=== PATIENT | female | born 1970 | race Two or more races ===

== ENCOUNTER 2018-09-27 15:02 | Day surgery (SDC) | payer OTHER ==
[2018-09-27] VITALS (12 sets, daily range): BP systolic 108–157; BP diastolic 60–73; PULSE 66–87; RESP 8–20; Ht 160 cm; Wt 143.6 kg
[~2018-09-27] VITALS: Ht 160 cm; Wt 143.6 kg
[~2018-09-27 15:02] MED LIST: CEFAZOLIN 2 GM/50 ML (PMX) 50 ML IVPB SCH
--- NOTE | 2018-09-27 16:14 | HPN ---
Date/Time of Note Date/Time of Note DATE: 09/27/18 TIME: 16:14 Interval H&P Admission Note Pt. seen H&P reviewed: No system changes BRISSA MOORE MD Sep 27, 2018 16:14
[2018-09-27] MEDS ORDERED: LACTATED RINGER'S 1,000 ML IV SCH (16:30)
[2018-09-27] MEDS ORDERED: LIDOCAINE 1% (MPF) 30 ML INJ ONE (17:18)
[2018-09-27] MEDS ORDERED: POLYMYXIN/BACITRACIN 1L IRRIG ONE (17:18)
--- NOTE | 2018-09-27 18:14 | PREAC ---
Date/Time of Note Date/Time of Note DATE: 09/27/18 TIME: 18:13 Anesthesia Eval and Record Evaluation Time Pre-Procedure Interview DATE: 09/27/18 TIME: 18:13 Age 48 Sex female NPO: 8 hrs Preoperative diagnosis L foot infection Planned procedure L foot debridement and skin graft Past Medical History Past Medical History: Includes Pulm: Asthma GI: Morbid obesity Surgery & Anesthesia Issues No known issue Meds Anticoagulation: No Beta Kathryn within 24 hr: No Reason Beta Kathryn not given: Pt. not on B-Kathryn Current Medications Lactated Ringer's 1,000 ml @ 0 mls/hr Q0M IV ; Start 09/27/18 at 16:30 Meds reviewed: Yes Allergies Coded Allergies: No Known Allergy (Unverified , 09/26/18) Allergies Reviewed: Yes Labs/Studies Labs Reviewed: Reviewed by anesthesiologist Result Diagram: 09/27/18 1600 09/27/18 1600 Laboratory Tests 09/27/18 16:00 test: N/A Studies: ECG Pre-procedure Exam Last vitals Vital Signs Date Temp Pulse Resp B/P (MAP) Pulse Ox O2 O2 Flow FiO2 Time Delivery Rate 09/27/18 98.3 87 16 145/68 95 Room Air 16:15 (93) Airway: Adequate mouth opening, Adequate thyromental dist Mallampati: Mallampati II Teeth: Normal Lung: Normal Heart: Normal ASA Physical Status ASA physical status: 3 Emergency: None Planned Anesthetic General/MAC: Mask, ETT, LMA, MAC Pre-operative Attestations Prior to commencing anesthesia and surgery, the patient was re-evaluated, there was verification of: *The patient's identity *The results of appropriate recent lab work and preoperative vital signs *The above evaluation not changing prior to induction *Anesthetic plan, risk benefits, alternative and complications discussed with patient/family; questions answered; patient/family understands, accepts and wishes to proceed. RICCO MONIQUE Sep 27, 2018 18:14
[2018-09-27] MEDS ORDERED: FENTAnyl 50 MCG/ML VIAL ONE ×2 (18:21→19:02)
[2018-09-27] MEDS ORDERED: CEFAZOLIN 1 GM INJ ONE (18:21)
[2018-09-27] MEDS ORDERED: PROPOFOL 20 ML ONE (18:21)
--- NOTE | 2018-09-27 18:25 | OPR ---
Date/Time of Note Date/Time of Note DATE: 09/27/18 TIME: 18:21 Operative Report Procedure Date: Sep 27, 2018 Preoperative Diagnosis Left lower extremity lymphedema and nonhealing stasis ulcer Postoperative Diagnosis Same Operation/Procedure Performed 1. Left lower extremity excisional sharp debridement of the skin, subcutaneous tissue, and superficial muscle area of 40 cm2. 2. Application of split-thickness skin graft substitute to the lower limb using a xenograft 7 x 15 cm. 3. Application of xenograft matrix powder mix 1000 mg. Surgeon see signature line Stock Control Supervisor None Anesthesia Type: moderate sedation Estimated Blood Loss: minimal Transfusion none Specimen None Grafts/Implants ACell Complications none Pt Condition Post Procedure: stable Disposition: PACU Procedure Description DATE OF OPERATION: 09/27/2018 SURGEON: Jose Moore MD PREOPERATIVE DIAGNOSIS: Left lower extremity nonhealing ulcer. POSTOPERATIVE DIAGNOSIS: Left lower extremity nonhealing ulcer. ANESTHESIA: Local with moderate sedation. ESTIMATED BLOOD LOSS: Minimal. COMPLICATIONS: None. GRAFTS: ACell xenograft. OPERATION PERFORMED: 1. Left lower extremity excisional sharp debridement of the skin, subcutaneous tissue, and superficial muscle area of 40 cm2. 2. Application of split-thickness skin graft substitute to the lower limb using a xenograft 7 x 15 cm. 3. Application of xenograft matrix powder mix 1000 mg. INDICATIONS: This is a 48-year-old female with longstanding history of a bilateral lower extremity lymphedema and left lower extremity nonhealing venous stasis ulcer that she has had for more than 4 months. Patient has been started on compression dressings however cannot tolerate bedside debridement in our wound care clinic. Excessive conversation has been held with the patient regarding adequate wound debridement with application of xenograft in order to help facilitate granulation tissue and being able to cover the wound defect. Based on these findings, all the risks and benefits were discussed with the patient. Suggestion of application of skin graft substitute in order to help facilitate the wound healing with granulation tissue development and for secondary wound healing was recommended. The patient agreed to proceed, understanding all that is involved and was able to repeat all the information back to me, demonstrating clear understanding of what is at hand. Risks includ ing but not limited to bleeding, thrombosis, embolization, myocardial infarction, , stroke, limb loss, and the patient has agreed to proceed. DESCRIPTION OF PROCEDURE: The patient was brought in to the operating room table, placed in supine position. Bilateral upper extremities were placed at 80 degrees. All bony prominences were padded appropriately. The patient was given preoperative antibiotics. A timeout and appropriate sites were marked and confirmed. Subsequently, the left lower extremity was then prepped and draped in the usual standard sterile fashion. Time out and appropriate sites were marked and confirmed. Using sharp curet and 15-blade, we performed excisional sharp debridement of the skin, subcutaneous tissue, and superficial muscle, which the area was exposed. We then developed adequate rebleeding in the wound base and all the necrotic fibrinous tissue was excised. At this the wound measurements were 4 x8xx1 cm. We wanted to cover the wound defect with the matrix powder with a 2-layer split-thickness skin graft substitute xenograft measuring 7 x 15 cm. Following this, we went ahead and applied our sterile dressing using Adaptic, Surgilube, Telfa, Kerlix, and bias. The patient tolerated the procedure well and was taken to the postanesthesia care unit in stable condition. All instruments, catheters, needles, wires were correct x2. JOSE MOORE MD Sep 27, 2018 18:25
--- NOTE | 2018-09-27 18:27 | PDOCDIS ---
Discharge Instructions DIAGNOSIS Discharge Diagnosis Left lower extremity nonhealing stasis ulcer CONDITION [id number] Patient Condition: [id number] Good HOME CARE INSTRUCTIONS: [id number] Diet Instructions: Oemyd2f Regular ACTIVITY: [id number] Activity Restrictions: Dguza8m Slowly Increase Activity Rest between Activity Avoid heavy lifting Do not Drive Do not operate Machinery Do not operate Power Tool Avoid Heavy Housework Keep Limb Elevated [id number] Bathing Restrictions: [id number] Sponge Bath FOLLOW UP/APPOINTMENTS Follow-up Plan Not remove dressing until next office visit in 1 week Avoid the dressing wet BRISSA MOORE MD Sep 27, 2018 18:26
[2018-09-27] MEDS ORDERED: FENTAnyl 50 MCG/ML VIAL IV PRN (18:30)
[2018-09-27] MEDS: FENTAnyl 50 MCG/ML VIAL IV PRN ×3 (19:07→19:43)
--- NOTE | 2018-09-27 20:10 | PAC ---
Date/Time of Note Date/Time of Note DATE: 09/27/18 TIME: 20:10 Post-Anesthesia Notes Post-Anesthesia Note Last documented vital signs Vital Signs Date Temp Pulse Resp B/P (MAP) Pulse Ox O2 O2 Flow FiO2 Time Delivery Rate 09/27/18 72 16 126/60 93 Room Air 19:35 (82) 09/27/18 2.0 19:15 09/27/18 100.3 19:02 Activity: WNL Respiratory function: WNL Cardiovascular function: WNL Mental status: Baseline Pain reasonably controlled: Yes Hydration appropriate: Yes Nausea/Vomiting absent: Yes RCICO MONIQUE Sep 27, 2018 20:10
== END 2018-09-27 20:00 | disposition home or self-care (01) ==
LOC: SDS 15:02
PROVIDERS: ATTEND Student in an Organized Health Care Education/Training Program
DX: I83.028 Varicose veins of left lower extremity with ulcer other part of lower leg (principal); L97.829 Non-pressure chronic ulcer of other part of left lower leg with unspecified severity; J45.909 Unspecified asthma, uncomplicated; E66.01 Morbid (severe) obesity due to excess calories; Z68.43 Body mass index [BMI] 50.0-59.9, adult; Z86.718 Personal history of other venous thrombosis and embolism
CPT/HCPCS: 11043; 11046; 71045; 80053; 81001; 85025; 85610; 85730; 93005; J0690; J3010; Q4118; Q4166; Z7512; Z7610

== ENCOUNTER 2018-11-06 15:32 | Day surgery (SDC) | payer OTHER ==
[~2018-11-06] VITALS: Ht 160 cm; Wt 143.3 kg
[2018-11-06] VITALS (12 sets, daily range): BP systolic 106–133; BP diastolic 56–76; PULSE 70–80; RESP 14–33; Ht 160 cm; Wt 143.3 kg
[~2018-11-06 15:32] MED LIST changes: +ALBU2.5V3 NEB; -CEFAZOLIN 2 GM/50 ML (PMX) 50 ML IVPB SCH; +IPRA4AER INHALATION
[2018-11-06] MEDS ORDERED: CEFAZOLIN 2 GM/50 ML (PMX) 50 ML IVPB ONE (16:00)
[2018-11-06] MEDS ORDERED: LACTATED RINGER'S 1,000 ML IV SCH (16:30)
[2018-11-06] MEDS ORDERED: POLYMYXIN/BACITRACIN 1L IRRIG ONE (17:49)
[2018-11-06] MEDS ORDERED: LIDOCAINE 1% (MPF) 30 ML INJ ONE (17:49)
--- NOTE | 2018-11-06 18:20 | PREAC ---
Date/Time of Note Date/Time of Note DATE: 11/06/18 TIME: 18:16 Anesthesia Eval and Record Evaluation Time Pre-Procedure Interview DATE: 11/06/18 TIME: 18:16 Age 48 Sex female NPO: 8 hrs Preoperative diagnosis Nonhealing ulcer LLE Planned procedure LLE debridment with split thickness skin graft substitue Past Medical History Past Medical History: Includes Pulm: Asthma GI: Morbid obesity Surgery & Anesthesia Issues No known issue Meds Anticoagulation: No Beta Kathryn within 24 hr: No Reason Beta Kathryn not given: Pt. not on B-Kathryn Reported Medications Albuterol/Ipratropium* (Combivent Respimat*) 20-100 Mcg/Inh - 4 Gm Aer.w.adap, 2 PUFF INHALATION QID, #1 INHALER 10/19/18 Albuterol Sulfate* (Albuterol Sulfate* Neb) 0.083%-3 Ml Neb, 1.25 MG NEB Q4H, #30 VIAL 10/19/18 Current Medications Lactated Ringer's 1,000 ml @ 0 mls/hr Q0M IV Last administered on 11/06/18at 16:42; Admin Dose 0 MLS/HR; Start 11/06/18 at 16:30 Meds reviewed: Yes Allergies Coded Allergies: No Known Allergy (Unverified , 11/06/18) Allergies Reviewed: Yes Labs/Studies Labs Reviewed: Reviewed by anesthesiologist Result Diagram: 11/06/18 1620 11/06/18 1620 Laboratory Tests 11/06/18 16:20 test: Negative Pre-procedure Exam Last vitals Vital Signs Date Temp Pulse Resp B/P (MAP) Pulse Ox O2 O2 Flow FiO2 Time Delivery Rate 11/06/18 97.2 75 18 127/76 95 Room Air 16:35 (93) Airway: Adequate mouth opening Mallampati: Mallampati I Teeth: Normal Lung: Normal Heart: Normal ASA Physical Status ASA physical status: 3 Emergency: None Planned Anesthetic General/MAC: LMA, TIVA Planned Pain Management Single shot nerve block, Parenteral pain med Pre-operative Attestations Prior to commencing anesthesia and surgery, the patient was re-evaluated, there was verification of: *The patient's identity *The results of appropriate recent lab work and preoperative vital signs *The above evaluation not changing prior to induction *Anesthetic plan, risk benefits, alternative and complications discussed with patient/family; questions answered; patient/family understands, accepts and wishes to proceed. RODRIGO CUEVA MD Nov 06, 2018 18:20
--- NOTE | 2018-11-06 18:27 | HPN ---
Date/Time of Note Date/Time of Note DATE: 11/06/18 TIME: 18:27 Interval H&P Admission Note Pt. seen H&P reviewed: No system changes BRISSA MOORE MD Nov 06, 2018 18:27
[2018-11-06] MEDS ORDERED: OXYCODONE/ACETAMINOPHEN (5/325) TAB PO PRN ×2 (18:30)
[2018-11-06] MEDS ORDERED: MEPERIDINE 25 MG INJ IV PRN (18:30)
[2018-11-06] MEDS ORDERED: KETOROLAC 30 MG INJ IV PRN (18:30)
[2018-11-06] MEDS ORDERED: HYDROmorphONE 1 MG/5 ML IV SYRINGE IV PRN ×3 (18:30)
[2018-11-06] MEDS ORDERED: FENTAnyl 50 MCG/ML VIAL IV PRN ×3 (18:30)
[2018-11-06] MEDS ORDERED: DIPHENHYDRAMINE 50 MG INJ IV PRN (18:30)
[2018-11-06] MEDS ORDERED: ONDANSETRON 4 MG INJ IV PRN (18:30)
[2018-11-06] MEDS ORDERED: MIDAZOLAM 1 MG/ML 2 ML INJ ONE (18:32)
[2018-11-06] MEDS ORDERED: FENTAnyl 50 MCG/ML VIAL ONE (18:32)
--- NOTE | 2018-11-06 18:32 | OPR ---
Date/Time of Note Date/Time of Note DATE: 11/06/18 TIME: 18:28 Operative Report Preoperative Diagnosis Left lower extremity venous stasis nonhealing ulcer. Postoperative Diagnosis none Operation/Procedure Performed 1. Left lower extremity excisional sharp debridement of the skin, subcutaneous tissue, and superficial muscle area of 20 cm2. 2. Application of split-thickness skin graft substitute to the lower limb using a xenograft 7 x 10 cm. 3. Application of xenograft matrix powder mix 500 mg. Surgeon see signature line Inspector Outside Steam Distribution none Anesthesia Type: moderate sedation (local), other Estimated Blood Loss: minimal Transfusion none Specimen none Grafts/Implants Acell Complications none Pt Condition Post Procedure: stable Disposition: PACU Procedure Description DATE OF OPERATION: 11/06/2018 SURGEON: Jose Moore MD PREOPERATIVE DIAGNOSIS: Left lower extremity venous stasis nonhealing ulcer. POSTOPERATIVE DIAGNOSIS: Left lower extremity venous stasis nonhealing ulcer. ANESTHESIA: Local with moderate sedation. ESTIMATED BLOOD LOSS: Minimal. COMPLICATIONS: None. GRAFTS: ACell xenograft. OPERATION PERFORMED: 1. Left lower extremity excisional sharp debridement of the skin, subcutaneous tissue, and superficial muscle area of 20 cm2. 2. Application of split-thickness skin graft substitute to the lower limb using a xenograft 7 x 10 cm. 3. Application of xenograft matrix powder mix 500 mg. INDICATIONS: This is a 48-year-old female with longstanding history of a bilateral lower extremity lymphedema and left lower extremity nonhealing venous stasis ulcer that she has had for more than 5 months. Patient was started on compression dressings however was not able to tolerate the a bedside debridement in wound care clinic. Excessive conversation has been held with the patient regarding adequate wound debridement with application of xenograft in order to help facilitate granulation tissue and epithelization with being able to cover the wound defect. The wound has developed adequate epithelization and appears improved since our last intervention. Based on these findings, all the risks and benefits were discussed with the patient. The patient agreed to proceed, understanding all that is involved and was able to repeat all the information back to me, demonstrating clear understanding of what is at hand. Risks including but not limited to bleeding, thrombosis, embolization, myocardial infarction, , stroke, limb loss, and the patient has agreed to proceed. DESCRIPTION OF PROCEDURE: The patient was brought in to the operating room table, placed in supine position. Bilateral upper extremities were placed at 80 degrees. All bony prominences were padded appropriately. The patient was given preoperative antibiotics. A timeout and appropriate sites were marked and confirmed. Subsequently, the left lower extremity was then prepped and draped in the usual standard sterile fashion. Time out and appropriate sites were marked and confirmed. Using sharp curet and 15-blade, we performed excisional sharp debridement of the skin, subcutaneous tissue, and superficial muscle. Necrotic tissue and nonviable tissue was removed. Adequate rebleeding in the wound base was identified and further necrotic fibrinous tissue was excised. At this the wound measurements were 2.5 x 7 x0.4 cm. We wanted to cover the wound defect with the matrix powder 500 milligram then followed with a 2-layer split-thickness skin graft substitute xenograft measuring 7 x 10 cm. Following this, we went ahead and applied our sterile dressing using Adaptic, Surgilube, Telfa, Kerlix, and bias. The patient tolerated the procedure well and was taken to the postanesthesia care unit in stable condition. All instruments, catheters, needles, wires were correct x2. JOSE MOORE MD Nov 06, 2018 18:32
[2018-11-06] MEDS ORDERED: CEFAZOLIN 1 GM INJ ONE (18:34)
--- NOTE | 2018-11-06 18:39 | CONS ---
Assessment/Plan Assessment/Plan Assessment/Plan (Daily) DATE: 11/06/2018 Vascular surgery H&P Assessment and plan: -It seems that patient has a chronic non-healing ulcer to her left lower extremity that has required debridement in the past. We have now started process for serial debridements and local wound care with compression therapy in order to help heal this wound. We have discussed undergoing serial patients of split-thickness skin graft substitute with ACell and the debridement. -Further the patient will need to not be as active on her feet as well . With her current occupation will need some time to continue with her regular activities however to be on off duty from work until her wound is able to get smaller -Bilateral lower extremity varicose veins and edema: It seems the patient has developed varicose veins and edema. Awaiting bilateral lower extremity reflux studies with evaluation of the superficial venous system (GSV & LSV) & deep venous system. -Recommend compression stockings to be applied bilateral lower extremities, knee high, with pressure of 20-30mmHg, while standing/ambulation -Elevate bilateral lower extremities when at rest -Reviewed weight loss and necessary information and intervention were provided given truncal obesity -Optimize Vascular status (BP meds, cholesterol, diet, nutrition, exercise, sugar control, antiplatelets) -Discussed findings, plan and management with the patient and primary service and they understand -Thank you for allowing us to partake in the care of your patient, please call with any questions History of Present Illness: Information is gathered from patient/family/chart/other Dear Doctors, DianeRenuka Alcala is a 48 y.o. female whom presented to [facility] with history of bilateral lower extremity varicose veins and swelling for many years here for evaluation of left lower extremity non- healing ulcer. Patient states the ulcer to her LLE has been ongoing since June 2017. Last week she had significant pain, redness, and warmth to the area. She went to [facility] and had an ultrasound done which she reports was negative for DVT. She had previously completed a course of antibiotics with no improvement. Patient states she had an MRI of left ankle to evaluate for infect ion but she is unsure of results. Patient reports she fell in 1995 and needed 22 stitches for wound to her left lower extremity. Over the years, Deirdre reports she has had recurrent wounds to her left lower leg with worsening swelling to her LLE. She was hospitalized in February 2018 for her LLE wound and it was debrided at that time. She had home health assist with wound care. Patient has a history of varicose veins. Her varicose veins are worse on the left. Deirdre Alcala varicose veins are associated with pain, discomfort, aching, and itchiness. No relieving factors and worse at night. She further has what appears to be lymphedema of the bilateral lower extremities worse on the left than right. Her left lower extremity dressing is intact She does not have history of DVT. At the moment patient denies SOB, Chest pain, nausea, vomiting, fever, chills. Reviewed Information: Imaging Labs Consultation Notes Past Medical History: History reviewed. No pertinent past medical history. History reviewed. No pertinent surgical history. Allergies: No Known Allergies Home Medications: (Not in a hospital admission) Current Medications: Current Outpatient Medications Medication Sig Dispense Refill albuterol 90 mcg/puff inhaler INHALE 1- 2 PUFF PO Q 4 TO 6 H PRN 2 ibuprofen (ADVIL,MOTRIN) 800 MG tablet 0 No current facility-administered medications for this visit. Family History: Family History Problem Relation Age of Onset Diabetes Mother Heart disease Mother Social History: Social History Socioeconomic History Marital status: Single Spouse name: Not on file Number of children: Not on file Years of education: Not on file Highest education level: Not on file Social Needs Financial resource strain: Not on file Food insecurity - worry: Not on file Food insecurity - inability: Not on file Transportation needs - medical: Not on file Transportation needs - non-medical: Not on file Occupational History Not on file Tobacco Use Smoking status: Never Smoker Smokeless tobacco: Never Used Substance and Sexual Activity Alcohol use: Never Frequency: Never Drug use: Never Sexual activity: Not on file Other Topics Concern Not on file Social History Narrative Not on file Review of Systems: 14-point review performed and negative except what is mentioned in the HPI Exam: Vitals: As listed Physical Examination: General: Alert & Oriented x3, NAD HEET: NCAT, mucosa moist, Neck: Supple, no carotid bruit, Cardiovascular: S1S2 Present, no murmurs Respiratory: CTAB, no crackles, Abdomen: Soft NTND, BS+, Truncal obesity Extremities: -RLE: Palpable femoral pulse, palpable pedal pulse, motor/sensory intact, cap refill 3 seconds, spider veins, varicose veins, edema, dry skin -LLE: Palpable femoral pulse, palpable pedal pulse, motor/sensory intact, cap refill 3 seconds, spider veins, varicose veins, lipodermatosclerosis, edema, left lower extremity dressing is intact -we have removed the dressing venous ulcer smaller insize, no erythema, no pus, granulation tissue, lymphedema larger on the left and right -RUE: Palpable brachial pulse, motor/sensory intact, cap refill 3 seconds, -LUE: Palpable brachial pulse, motor/sensory intact, cap refill 3 seconds, Diagnostic Studies: Available Labs and Images were reviewed personally. Significant results and findings are addressed below or in the Assessment and Plan. Electronically signed by: Jose Moore MD Disclaimers: 1. Inadvertent spelling and grammatical errors are likely due to electronic health record (EHR)/dictation software used and do not reflect on the quality of delivered patient care. 2. The electronic timestamp recorded on this note does not necessarily reflect the actual date and time of the visit or the service. 3. Portions of this note may have been created through electronic templates and computer algorithms that might bring in information either from the system or from other physicians and providers. Please note that such information may or may not contain errors, the occurrence of which are outside of my control. In general (but not always) this happens either in the beginning or at the end of the note. The portion of the note that I have created are generally done in 1 continuous block of text, flanked at the beginning and at the end and entered into one field in the EHR. 4. There may be other unanticipated errors in the note that are outside of my control. I can only attest to the portions of the note that I have created. 5. Portions of this chart may have been created with [employer] voice recognition software. Occasional wrong-word or sound-alike substitutions may have occurred due to the inherent limitations of voice recognition software. Please read the chart carefully and recognize, using context, where these substitutions have occurred. The chart may also contain mistakes due to difficulties with voice recognition software. 6. Ten system Twenty point review of systems is obtained today and is negative other than what is documented above. This is done by patient/family/healthcare proxy interview, discussion with the nurse/hospital staff and/or chart review. Inpatient consultation for a new or established patient, including these 3 smith components: A comprehensive history; A comprehensive examination; and Medical decision making of high complexity. Counseling and/or coordination of care with other physicians, other qualified health manager medicare marketing, or agencies are provided consistent with the nature of the problem(s) and the patient's and/or family's needs. The presenting problem(s) are of moderate to high severity. Typically, 110 minutes are spent at the bedside and on the patient's hospital f neal or unit. Available data images were reviewed personally. Significant results and findings are addressed in the assessment andplan. All medications were reviewed. Code status has been addressed. Consultation Date/Type/Reason Admit Date/Time Date/Time of Note DATE: 11/06/18 TIME: 18:33 Past Medical History Home Meds Reported Medications Albuterol/Ipratropium* (Combivent Respimat*) 20-100 Mcg/Inh - 4 Gm Aer.w.adap, 2 PUFF INHALATION QID, #1 INHALER 10/19/18 Albuterol Sulfate* (Albuterol Sulfate* Neb) 0.083%-3 Ml Neb, 1.25 MG NEB Q4H, #30 VIAL 10/19/18 Medications Current Medications Lactated Ringer's 1,000 ml @ 0 mls/hr Q0M IV Last administered on 11/06/18at 16:42; Admin Dose 0 MLS/HR; Start 11/06/18 at 16:30 Hydromorphone HCl (Dilaudid) 0.2 mg PACU PRN IV MILD PAIN 1-3; Start 11/06/18 at 18:30; Status UNV Hydromorphone HCl (Dilaudid) 0.4 mg PACU PRN IV MOD PAIN 4-6; Start 11/06/18 at 18:30; Status UNV Hydromorphone HCl (Dilaudid) 0.6 mg PACU PRN IV SEVERE PAIN 7-10; Start 11/06/18 at 18:30; Status UNV Fentanyl (Sublimaze) 25 mcg PACU ORDER PRN IV MILD PAIN 1-3; Start 11/06/18 at 18:30; Status UNV Fentanyl (Sublimaze) 50 mcg PACU ORDER PRN IV MOD PAIN 4-6; Start 11/06/18 at 18:30; Status UNV Fentanyl (Sublimaze) 75 mcg PACU ORDER PRN IV SEVERE PAIN 7-10; Start 11/06/18 at 18:30; Status UNV Ketorolac Tromethamine (Toradol) 30 mg PACU ORDER PRN IV FOR PAIN AFTER IV NARCOTIC MED; Start 11/06/18 at 18:30; Stop 11/09/18 at 18:29; Status UNV Oxycodone/ Acetaminophen (Percocet (5/ 325)) 1 tab PACU ORDER PRN PO .PAIN 1-5; Start 11/06/18 at 18:30; Status UNV Oxycodone/ Acetaminophen (Percocet (5/ 325)) 2 tab PACU ORDER PRN PO .PAIN 6-10; Start 11/06/18 at 18:30; Status UNV Ondansetron HCl (Zofran Inj) 4 mg PACU ORDER PRN IV NAUSEA/VOMITING; Start 11/06/18 at 18:30; Status UNV Meperidine HCl (Demerol) 25 mg PACU ORDER PRN IV .RIGORS; Start 11/06/18 at 18:30; Status UNV Diphenhydramine HCl (Benadryl) 25 mg PACU ORDER PRN IV .PRURITUS; Start 11/06/18 at 18:30; Status UNV Allergies: Coded Allergies: No Known Allergy (Unverified , 11/06/18) Social History Smoking Status: Never smoker Exam/Review of Systems Exam Vitals Vital Signs Date Temp Pulse Resp B/P (MAP) Pulse Ox O2 O2 Flow FiO2 Time Delivery Rate 11/06/18 97.2 75 18 127/76 95 Room Air 16:35 (93) Results Result Diagram: 11/06/18 1620 11/06/18 1620 Results 24hrs Laboratory Tests Test 11/06/18 16:20 White Blood Count 7.0 Red Blood Count 4.19 L Hemoglobin 12.1 Hematocrit 38.5 Mean Corpuscular Volume 91.9 Mean Corpuscular Hemoglobin 28.9 L Mean Corpuscular Hemoglobin Concent 31.4 L Red Cell Distribution Width 12.7 Platelet Count 169 Mean Platelet Volume 12.4 H Immature Granulocytes % 0.400 Neutrophils % 59.7 Lymphocytes % 22.7 Monocytes % 8.3 Eosinophils % 8.5 H Basophils % 0.4 Nucleated Red Blood Cells % 0.0 Immature Granulocytes # 0.030 Neutrophils # 4.2 Lymphocytes # 1.6 Monocytes # 0.6 Eosinophils # 0.6 H Basophils # 0.0 Nucleated Red Blood Cells # 0.0 Prothrombin Time 12.5 Prothrombin Time Ratio 1.0 INR International Normalized Ratio 0.92 Activated Partial Thromboplast Time 31.8 Urine Color YELLOW Urine Clarity SLIGHTLY CLOUDY A Urine pH 5.0 Urine Specific [place] 1.023 Urine Ketones NEGATIVE Urine Nitrite POSITIVE A Urine Bilirubin NEGATIVE Urine Urobilinogen NEGATIVE Urine Leukocyte Esterase NEGATIVE Urine Microscopic RBC 0 Urine Microscopic WBC 1 Urine Squamous Epithelial Cells MODERATE Urine Bacteria MODERATE Urine Mucus MANY A Urine Hemoglobin NEGATIVE Urine Glucose NEGATIVE Urine Total Protein NEGATIVE Sodium Level 137 Potassium Level 4.5 Chloride Level 105 Carbon Dioxide Level 27 Anion Gap 5 Blood Urea Nitrogen 15 Creatinine 0.61 Est Glomerular Filtrat Rate mL/min > 60 Glucose Level 89 Calcium Level 9.1 Medications Medication Current Medications Lactated Ringer's 1,000 ml @ 0 mls/hr Q0M IV Last administered on 11/06/18at 16:42; Admin Dose 0 MLS/HR; Start 11/06/18 at 16:30 Hydromorphone HCl (Dilaudid) 0.2 mg PACU PRN IV MILD PAIN 1-3; Start 11/06/18 at 18:30; Status UNV Hydromorphone HCl (Dilaudid) 0.4 mg PACU PRN IV MOD PAIN 4-6; Start 11/06/18 at 18:30; Status UNV Hydromorphone HCl (Dilaudid) 0.6 mg PACU PRN IV SEVERE PAIN 7-10; Start 11/06/18 at 18:30; Status UNV Fentanyl (Sublimaze) 25 mcg PACU ORDER PRN IV MILD PAIN 1-3; Start 11/06/18 at 18:30; Status UNV Fentanyl (Sublimaze) 50 mcg PACU ORDER PRN IV MOD PAIN 4-6; Start 11/06/18 at 18:30; Status UNV Fentanyl (Sublimaze) 75 mcg PACU ORDER PRN IV SEVERE PAIN 7-10; Start 11/06/18 at 18:30; Status UNV Ketorolac Tromethamine (Toradol) 30 mg PACU ORDER PRN IV FOR PAIN AFTER IV NARCOTIC MED; Start 11/06/18 at 18:30; Stop 11/09/18 at 18:29; Status UNV Oxycodone/ Acetaminophen (Percocet (5/ 325)) 1 tab PACU ORDER PRN PO .PAIN 1-5; Start 11/06/18 at 18:30; Status UNV Oxycodone/ Acetaminophen (Percocet (5/ 325)) 2 tab PACU ORDER PRN PO .PAIN 6-10; Start 11/06/18 at 18:30; Status UNV Ondansetron HCl (Zofran Inj) 4 mg PACU ORDER PRN IV NAUSEA/VOMITING; Start 11/06 at 18:30; Status UNV Meperidine HCl (Demerol) 25 mg PACU ORDER PRN IV .RIGORS; Start 11/06/18 at 18:30; Status UNV Diphenhydramine HCl (Benadryl) 25 mg PACU ORDER PRN IV .PRURITUS; Start 11/06/18 at 18:30; Status UNV JOSE MOORE MD Nov 06, 2018 18:39
--- NOTE | 2018-11-06 18:41 | PDOCDIS ---
Discharge Instructions DIAGNOSIS Discharge Diagnosis LLE non healing ulcer CONDITION [id number] Patient Condition: [id number] Good HOME CARE INSTRUCTIONS: [id number] Diet Instructions: [id number] Regular ACTIVITY: [id number] Activity Restrictions: [id number] Slowly Increase Activity Rest between Activity Avoid heavy lifting Do not Drive Do not operate Machinery Do not operate Power Tool Avoid Heavy Housework [id number] Bathing Restrictions: [id number] Sponge Bath FOLLOW UP/APPOINTMENTS Follow-up Plan DO NOT REMOVE DRESSING FOR TWO WEEKS FOLLOWUP IN 2 WEEKS KEEP LEGS ELEVATED WHILE AT REST WEAR COMPRESSION STOCKINGS BRISSA SOLIS MD Nov 06, 2018 18:41
[2018-11-06] MEDS ORDERED: KETOROLAC 30 MG INJ ONE (18:52)
--- NOTE | 2018-11-07 07:34 | PAC ---
Date/Time of Note Date/Time of Note DATE: 11/07/18 TIME: 07:34 Post-Anesthesia Notes Post-Anesthesia Note Last documented vital signs Vital Signs Date Temp Pulse Resp B/P (MAP) Pulse Ox O2 O2 Flow FiO2 Time Delivery Rate 11/06/18 98.7 80 19 115/58 94 Room Air 20:05 (77) Activity: WNL Respiratory function: WNL Cardiovascular function: WNL Mental status: Baseline Pain reasonably controlled: Yes Hydration appropriate: Yes Nausea/Vomiting absent: No RODRIGO CUEVA MD Nov 07, 2018 07:34
== END 2018-11-06 20:30 | disposition home or self-care (01) ==
LOC: SDS 15:32
PROVIDERS: ATTEND Student in an Organized Health Care Education/Training Program
DX: I83.028 Varicose veins of left lower extremity with ulcer other part of lower leg (principal); L97.829 Non-pressure chronic ulcer of other part of left lower leg with unspecified severity; J45.909 Unspecified asthma, uncomplicated; E66.01 Morbid (severe) obesity due to excess calories; Z68.43 Body mass index [BMI] 50.0-59.9, adult
CPT/HCPCS: 11043; 80048; 81001; 85025; 85610; 85730; C9363; J0690; J1885; J2250; J2405; J3010; Q4118; Z7512; Z7610

== ENCOUNTER 2018-12-04 15:55 | Day surgery (SDC) | payer OTHER ==
[~2018-12-04] VITALS: Ht 160 cm; Wt 145.3 kg
[2018-12-04] VITALS (11 sets, daily range): BP systolic 118–124; BP diastolic 55–66; PULSE 62–77; RESP 15–20; Ht 160 cm; Wt 145.3 kg
[2018-12-04] MEDS ORDERED: CEFAZOLIN 2 GM/50 ML (PMX) 50 ML IVPB ONE (16:00)
[2018-12-04] MEDS ORDERED: LACTATED RINGER'S 1,000 ML IV SCH (17:30)
[2018-12-04] MEDS ORDERED: LIDOCAINE 1% (MPF) 30 ML INJ ONE (17:47)
[2018-12-04] MEDS ORDERED: METOCLOPRAMIDE 10 MG INJ IV PRN (18:00)
[2018-12-04] MEDS ORDERED: ALBUTEROL 0.083% (NEB) 2.5 MG/3 ML AMP HHN PRN (18:00)
[2018-12-04] MEDS ORDERED: OXYCODONE/ACETAMINOPHEN (5/325) TAB PO PRN ×2 (18:00)
[2018-12-04] MEDS ORDERED: MIDAZOLAM 1 MG/ML 2 ML INJ ONE (18:00)
[2018-12-04] MEDS ORDERED: ONDANSETRON 4 MG INJ IV PRN (18:00)
[2018-12-04] MEDS ORDERED: LABETALOL HCL 20MG INJ IV PRN (18:00)
[2018-12-04] MEDS ORDERED: FENTAnyl 50 MCG/ML VIAL IV PRN ×2 (18:00)
[2018-12-04] MEDS ORDERED: HYDROmorphONE 1 MG/5 ML IV SYRINGE IV PRN ×3 (18:00)
[2018-12-04] MEDS ORDERED: FENTAnyl 50 MCG/ML VIAL ONE ×2 (18:00→18:13)
[2018-12-04] MEDS ORDERED: hydrALAzine 20 MG INJ IV PRN (18:00)
[2018-12-04] MEDS ORDERED: EPHEDrine 25 MG/5 ML SYG IV PRN (18:00)
[2018-12-04] MEDS ORDERED: CEFAZOLIN 1 GM INJ ONE (18:02)
[2018-12-04] MEDS ORDERED: ONDANSETRON 4 MG INJ ONE (18:04)
[2018-12-04] MEDS ORDERED: METOCLOPRAMIDE 10 MG INJ ONE (18:04)
== END 2018-12-04 19:28 | disposition home or self-care (01) ==
LOC: SDS 15:55
PROVIDERS: ATTEND Student in an Organized Health Care Education/Training Program
DX: I83.028 Varicose veins of left lower extremity with ulcer other part of lower leg (principal); L97.829 Non-pressure chronic ulcer of other part of left lower leg with unspecified severity; J45.909 Unspecified asthma, uncomplicated
CPT/HCPCS: 11043; 71045; 84703; C9363; J0690; J2250; J2405; J2765; J3010; Q4118; Z7512; Z7610